=== PATIENT | female | born 1990 | race Caucasian/White ===

== ENCOUNTER 2023-07-06 19:00 | Emergency (ER) | payer BC, OTHER, MEDICAID, SELFPAY ==
[2023-07-06 19:00] VITALS: BP 135/94; PULSE 91; RESP 12; TEMP 36.8; O2SAT 100
[2023-07-06] MEDS: methylPREDNISolone SOD SUCC 125 MG VIAL IM (20:13)
--- NOTE | 2023-07-06 20:26 | ED.ALLEREA ---
HPI - Allergic Reaction General Chief complaint: Allergic Reaction Stated complaint: anaphylactic shock Time Seen by Provider: 07/06/23 19:39 Source: patient Mode of arrival: ambulatory Limitations: no limitations History of Present Illness HPI narrative: Patient is a 33-year-old female with an allergic reaction. She had some slight tongue swelling and difficulty swallowing. Mostly she had rash and itching. She has many allergies and a baseline asthma. She does not feel like she needs a breathing treatment at this time. Her allergies to corn and she felt like she got into some corn tonight. MD complaint: allergic reaction Onset (ago): hour(s) (1) Exposure: food (corn) Known history of allergy to: corn Symptoms: rash, itching, facial swelling, lip swelling, difficulty swallowing and tongue swelling Severity: mild Treatment prior to arrival: benadryl (100mg [employer]) Previous Allergic Reaction History: prior ED visit(s), anaphylaxis and eczema Related Data Home Medications Medication Instructions Recorded Confirmed albuterol sulfate 90 mcg/actuation 2 puff inhalation PRN PRN Wheezing 07/06/23 07/06/23 aerosol inhaler dupilumab 300 mg/2 mL subcutaneous 300 mg subcut [id number] 07/06/23 07/06/23 pen injector (Dupixent) epinephrine 0.3 mg/0.3 mL 0.3 mg IM PRN PRN Allergic Reaction 07/06/23 07/06/23 injection, auto-injector hydroxyzine HCl 25 mg tablet 25 mg PO BID PRN Itching 07/06/23 07/06/23 levothyroxine 50 mcg tablet 50 mcg PO DAILY 07/06/23 07/06/23 Allergies Allergy/AdvReac Type Severity Reaction Status Date / Time Penicillins Allergy Mild Unknown Verified 07/06/23 20:08 corn AdvReac Severe Anaphylaxis Verified 07/06/23 20:08 Review of Systems Review of Systems: All systems reviewed & are unremarkable except as noted in HPI and below Constitutional: Constitutional: Reports no additional constitutional complaints Eyes: Eyes: Reports no additional eye complaints ENT: Reports system reviewed and no additional complaints, except as documented Cardiovascular: Cardiovascular: Reports no additional cardiovascular complaints Respiratory: Respiratory: Reports no additional respiratory complaints Gastrointestinal: Gastrointestinal: Reports no additional gastrointestinal complaints Genitourinary: Genitourinary: Reports no additional female genitourinary complaints Musculoskeletal: Musculoskeletal: Reports no additional musculoskeletal complaints Integumentary/Breasts: Skin/Breast: Reports system reviewed and no additional complaints, except as docu Neurologic: Reports system reviewed and no additional complaints, except as documented Psychiatric: Psychiatric: Reports no additional psychiatric complaints Endocrine: Endocrine: Reports no additional endocrine complaints Hematologic/Lymphatic: Hematologic/Lymphatic: Reports no additional hematologic/lymphatic complaints Allergic/Immunologic: Allergic/Immunologic: Reports no additional allergic/immunologic complaints Exam Const: General: healthy appearing Nutritional Appearance: well nourished Orientation/consciousness: patient oriented x3 HENMT: Head: normal to inspection Ears: external ears normal Face/Nose/Sinus: Normal external nose present Eyes: Conjunctivae: conjunctivae normal Pupils: Equal, round and reactive pupils present EOM: EOMs intact bilaterally Neck: Neck: normal visual inspection Chest: Chest palpation & inspection: normal inspection of the chest Resp: Effort & Inspection: normal respiratory effort and not labored Auscultation: clear to auscultation bilaterally, no crackles and wheezes (mildly) scattered wheezes Cardio: Rate: regular rate Rhythm: regular rhythm Heart sounds: no murmurs GI: Inspection: non-distended GI Palp: Yes Soft to palpation, No Tenderness to palpation present (GI) and No Guarding due to palpation present (GI) Auscultation: normal bowel sounds : General: Yes bladder normal to palpation Back/Spine/Pelvi
[2023-07-06 20:47] VITALS: BP 132/68; PULSE 84; RESP 16; O2SAT 100
== END 2023-07-06 20:46 | disposition home or self-care (01) ==
PROVIDERS: Emergency Provider Emergency Medicine; PCP Family Medicine
DX: T78.40XA Allergy, unspecified, initial encounter (principal)
CPT/HCPCS: 96372; 99283; J2930

== ENCOUNTER 2023-07-07 14:34 | Emergency (ER) | payer BC, OTHER, MEDICAID, SELFPAY ==
[2023-07-07] VITALS (7 sets, daily range): BP systolic 110–133; BP diastolic 70–89; PULSE 88; RESP 18; TEMP 36.6; O2SAT 97–100
[2023-07-07] MEDS: EPINEPHrine HCL INJ 1 MG/ML AMPUL 0.3 MG IM (14:45)
--- NOTE | 2023-07-07 14:45 | ED.ALLEREA ---
HPI - Allergic Reaction General Chief complaint: Allergic Reaction Stated complaint: allergic reaction Time Seen by Provider: 07/07/23 14:38 Source: patient and family Mode of arrival: ambulatory Limitations: no limitations History of Present Illness HPI narrative: 33-year-old white female allergic to corn. Said hour ago she ate some gummy bears the head corn syrup in it and then started having a rash in her hives and itching of her face difficulty swallowing scratchy throat uncomfortable breathing. Denies any rash elsewhere denies any nausea or vomiting she took 2 Benadryl half an hour ago and then came to the emergency room. Last night she was seen in the emergency room for another allergic reaction was given a steroid shot and given a prescription for prednisone which she took 2 prednisone today and given a prescription for EpiPen which she did not fill because it was too expensive, 300 dollars she also got a prescription for hydroxyzine. Otherwise she denies any dizziness lightheadedness cough fever runny nose bleeding or bruising rash or itching nausea vomiting diarrhea dizziness or lightheadedness or any other complaints. Related Data Home Medications Medication Instructions Recorded Confirmed albuterol sulfate 90 mcg/actuation 2 puff inhalation PRN PRN Wheezing 07/06/23 07/07/23 aerosol inhaler dupilumab 300 mg/2 mL subcutaneous 300 mg subcut [id number] 07/06/23 07/07/23 pen injector ([employer]) epinephrine 0.3 mg/0.3 mL 0.3 mg IM PRN PRN Allergic Reaction 07/06/23 07/07/23 injection, auto-injector hydroxyzine HCl 25 mg tablet 25 mg PO BID PRN Itching 07/06/23 07/07/23 levothyroxine 50 mcg tablet 50 mcg PO DAILY 07/06/23 07/07/23 Allergies Allergy/AdvReac Type Severity Reaction Status Date / Time Penicillins Allergy Mild Unknown Verified 07/07/23 14:41 corn AdvReac Severe Anaphylaxis Verified 07/07/23 14:41 Review of Systems Review of Systems: All systems reviewed & are unremarkable except as noted in HPI and below PMFSH Past Medical History Medical History (Updated 07/09/23 @ 00:01 by Background Daemon) Asthma exacerbation in COPD Eczema Comments History of allergy to corn. Exam Narrative: White female no apparent distress.? Head:? Normocephalic atraumatic.? Eyes conjunctiva pink sclera nonicteric.? Ears TMs are normal.? Oropharynx is clear with moist mucous membranes no exudates. No swelling of her tongue or posterior pharynx.? Neck is supple no lymphadenopathy nontender full range of motion.? Back is nontender.? Chest nontender.? Lungs are clear without wheezes rales or rhonchi.? Good air exchange. Heart is regular rate rhythm without murmurs gallops or rubs.? Abdomen soft and nontender no hepatosplenomegaly or masses no CVA tenderness no abdominal bruits.? Extremities no cyanosis clubbing or edema.? Neurological she is alert and oriented x4 motor and sensory grossly intact.? Skin is warm and dry without lesions. Face has erythematous rash. No other rashes or hives seen. Course Vital Signs Vital signs: Vital Signs Temperature 36.6 C 07/07/23 14:34 Pulse Rate 88 07/07/23 14:34 Respiratory Rate 18 07/07/23 14:34 Blood Pressure 133/89 07/07/23 14:34 Pulse Oximetry 98 07/07/23 14:34 Oxygen Delivery Room Air 07/07/23 14:34 Temperature 36.6 C 07/07/23 14:34 Pulse Rate 88 07/07/23 14:34 Respiratory Rate 18 07/07/23 14:34 Blood Pressure 110/70 07/07/23 16:31 Pulse Oximetry 100 07/07/23 16:31 Oxygen Delivery Room Air 07/07/23 14:34 MDM - Allergic Reaction MDM Narrative Medical decision making narrative: Patient placed in room # 3 with her mother History and physical performed. patient was given epinephrine 1-1000 0.3 mg IM Independent Historian: mother Differential Dx includes but not limited to: acute allergic reaction Medications were Reviewed: Medications, treatment, ED course: epinephrine 0.3 mg IM 1 to a 1000, Benadryl 25 Pe
--- NOTE | 2023-07-07 15:18 | PC.NURSE ---
PT REPORTS SHE IS FEELING A LOT BETTER NOW, HIVES ON FACE AND EARS HAVE IMPROVED. NO RESP DISTRESS NOTED. WILL CONTINUE TO MONITOR.
[2023-07-07] MEDS: SODIUM CHLORIDE 0.9% IV 1,000 ML 999 ML IV CONT (15:20)
[2023-07-07] MEDS: diphenhydrAMINE HCl INJ 50 MG/ML VIAL 25 MG IV PUSH (15:22)
[2023-07-07] MEDS: FAMOTIDINE 20 MG/2 ML VIAL IV PUSH (15:22)
[2023-07-07] MEDS: methylPREDNISolone SOD SUCC 125 MG VIAL IV PUSH (15:24)
--- NOTE | 2023-07-07 16:38 | PC.NURSE ---
PT REPORTS SHE IS MUCH BETTER, ALL HIVES ARE RESOLVED. VSS PER MONITOR.
== END 2023-07-07 16:50 | disposition home or self-care (01) ==
PROVIDERS: Emergency Provider Emergency Medicine; PCP Internal Medicine
DX: T78.1XXA Other adverse food reactions, not elsewhere classified, initial encounter (principal); L27.2 Dermatitis due to ingested food; Z79.899 Other long term (current) drug therapy
CPT/HCPCS: 96361; 96372; 96374; 96375; 99284; J0171; J1200; J2930; J7030

== ENCOUNTER 2023-07-08 17:40 | Emergency (ER) | payer BC, OTHER, MEDICAID, SELFPAY ==
[2023-07-08 17:40] VITALS: BP 133/95; PULSE 100; RESP 20; TEMP 36.3; O2SAT 100
--- NOTE | 2023-07-08 17:58 | ED.ALLEREA ---
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 She was hemodynamically stable. Her physical examination was unremarkable. No rash was noted on physical examination. she thinks she had some corn products. she was prescribed EpiPen and prednisone In addition to an injectable steroid in the ER. -- Yesterday she presented to the ER For facial rash, itching, throat itching and difficulty swallowing. the patient was hemodynamically stable. Physical examination was unremarkable except for erythematous rash on the face. She received EpiPen, Solu-Medrol, Pepcid and Benadryl with improvement of her symptoms. -- Today she presents to the ER with stating that she took Benadryl which had corn starch in it. 1 hour ago she developed itching of her throat along with chest pain and shortness of breath. She also complains of throat swelling with difficulty swallowing. MD complaint: allergic reaction Onset (ago): hour(s) ( started 1 hour ago) Exposure: other ( Benadryl which had corn products in it.) Symptoms: itching ( itching of her throat), difficulty swallowing and other ( chest pain and shortness of breath) Severity: mild Treatment prior to arrival: none Related Data Home Medications Medication Instructions Recorded Confirmed albuterol sulfate 90 mcg/actuation 2 puff inhalation PRN PRN Wheezing 07/06/23 07/07/23 aerosol inhaler dupilumab 300 mg/2 mL subcutaneous 300 mg subcut [id number] 07/06/23 07/07/23 pen injector (Dupixent) epinephrine 0.3 mg/0.3 mL 0.3 mg IM PRN PRN Allergic Reaction 07/06/23 07/07/23 injection, auto-injector hydroxyzine HCl 25 mg tablet 25 mg PO BID PRN Itching 07/06/23 07/07/23 levothyroxine 50 mcg tablet 50 mcg PO DAILY 07/06/23 07/07/23 Allergies Allergy/AdvReac Type Severity Reaction Status Date / Time Penicillins Allergy Mild Unknown Verified 07/07/23 14:41 corn AdvReac Severe Anaphylaxis Verified 07/07/23 14:41 Review of Systems Review of Systems: All systems reviewed & are unremarkable except as noted in HPI and below Constitutional: Constitutional: Reports as per HPI and Reports no additional constitutional complaints Eyes: Eyes: Reports as per HPI and Reports no additional eye complaints ENT: Reports system reviewed and no additional complaints, except as documented and Reports as per HPI Cardiovascular: Cardiovascular: Reports as per HPI, Reports no additional cardiovascular complaints and Reports chest pain Respiratory: Respiratory: Reports as per HPI and Reports no additional respiratory complaints Gastrointestinal: Gastrointestinal: Reports as per HPI and Reports no additional gastrointestinal complaints Genitourinary: Genitourinary: Reports no additional female genitourinary complaints and Reports as per HPI Musculoskeletal: Musculoskeletal: Reports no additional musculoskeletal complaints and Reports as per HPI Integumentary/Breasts: Skin/Breast: Reports system reviewed and no additional complaints, except as docu and Reports as per HPI Comments: no rash noted. Neurologic: Reports system reviewed and no additional complaints, except as documented and Reports as per HPI Psychiatric: Psychiatric: Reports no additional psychiatric complaints, Reports as per HPI and Reports anxiety Endocrine: Endocrine: Reports no additional endocrine complaints and Reports as per HPI Hematologic/Lymphatic: Hematologic/Lymphatic: Reports no additional hematologic/lymphatic complaints and Reports as per HPI Allergic/Immunologic: Al
[2023-07-08 18:23] LABS: Basophils Absolute Auto 0.06 K/mm3 (0.00-0.10); Basophils Percent Auto 0.7 % (0.0-1.0); Eosinophils Absolute Auto 0.02 K/mm3 (0.02-0.50); Eosinophils Percent Auto 0.2 % (1.0-6.0); Hematocrit 40.6 % (35.0-49.0); Hemoglobin 13.6 g/dL (12.0-15.0); Immature Granulocyte Absolute 0.02 K/mm3 (0.00-0.00); Immature Granulocyte Percent A 0.2 % (0.0-0.0); Lymphocytes Absolute Auto 3.06 K/mm3 (1.10-4.50); Lymphocytes Percent Auto 35.2 % (18.0-42.0); Mean Corpuscular HGB Conc 33.5 g/dL (32.0-36.0); Mean Corpuscular Hemoglobin 28.7 pg (27.0-31.0); Mean Corpuscular Volume 85.7 fL (78.0-102.0); Mean Platelet Volume 9.5 fl (9.2-11.8); Monocytes Absolute Auto 0.68 K/mm3 (0.10-0.90); Monocytes Percent Auto 7.8 % (2.0-11.0); Neutrophils Absolute Auto 4.9 K/mm3 (1.7-7.2); Neutrophils Percent Auto 55.9 % (50.0-70.0); Platelet Count Result 332 K/mm3 (150-420); Red Blood Count 4.74 M/mm3 (4.20-5.40); Red Cell Distribution Width 13.8 % (11.6-14.4); White Blood Count 8.7 K/mm3 (4.8-10.8)
[2023-07-08 18:49] LABS: Alanine Aminotransferase 18 U/L (14-59); Albumin Level 4.3 g/dL (3.4-5.0); Alkaline Phosphatase 73 U/L (46-116); Anion Gap 9 mmol/L (8-16); Aspartate Amino Transferase 13 U/L (15-37); Bilirubin,Total 0.4 mg/dL (0.00-1.00); Blood Urea Nitrogen 17 mg/dL (7-18); Calcium 9.2 mg/dL (8.5-10.1); Carbon Dioxide 29 mmol/L (21-32); Chloride 102 mmol/L (98-108); Estimated CRCL calculation 82 ml/min; Estimated Glomerular Filt Rate > 60; Glucose 90 mg/dL (70-99); Osmolality Calculated 291 mOsm/kg (285-295); Potassium 3.6 mmol/L (3.5-5.1); Sodium 140 mmol/L (136-145); Total Protein 7.6 g/dL (6.4-8.2); Troponin I < 4.0 ng/L (0.00-60.4)
[2023-07-08 19:05] LABS: Lactic Acid Reflex 1.2 mmol/L (0.4-2.0)
[2023-07-08 19:22] VITALS: BP 121/82; PULSE 85; RESP 20; TEMP 36.6; O2SAT 100
== END 2023-07-08 19:25 | disposition home or self-care (01) ==
PROVIDERS: Emergency Provider Internal Medicine Critical Care Medicine; PCP Internal Medicine
DX: F41.9 Anxiety disorder, unspecified (principal); T78.40XA Allergy, unspecified, initial encounter; Z79.899 Other long term (current) drug therapy
CPT/HCPCS: 36415; 80053; 83605; 84484; 85025; 99284